=== PATIENT | male | born 1980 | race Caucasian/White ===

== ENCOUNTER 2021-01-15 11:09 | Inpatient (IN) | payer SELFPAY ==
[~2021-01-15] VITALS: Ht 170.2 cm; Wt 79.8 kg
--- NOTE | 2021-01-15 11:30 | NUR ---
TO ER BED 11, C/O RIGHT LEG SWELLING AND PAIN P/S 12/13 X2 DAYS, "GOT BITTEN BY SPIDER", AAOX3, BREATHING EVEN AND NON LABORED, CONNECTED TO MONITOR
[2021-01-15] MEDS ORDERED: VANCOMYCIN 1 GM VIAL ONE (11:57)
--- NOTE | 2021-01-15 11:59 | NUR ---
TIRE MAKER AT PT'S BEDSIDE
[2021-01-15] MEDS ORDERED: VANCOMYCIN 1 GM in IV D5W 250 ML IV ONE (12:00)
[2021-01-15 12:24] LABS: BASOPHILS % (AUTO) 0.2 % (0.0-2.0); EOSINOPHILS % (AUTO) 0.5 % (0.0-6.0); HEMATOCRIT 35 % (39-51); HEMOGLOBIN 11.8 g/dL (13.5-17.5); LYMPHOCYTES # (AUTO) 2.1 K/uL (0.8-4.8); LYMPHOCYTES % (AUTO) 17.8 % (20.0-44.0); MEAN CORPUSCULAR HGB CONC 34 g/dl (31.0-36.0); MEAN CORPUSCULAR VOLUME 85 fL (80-96); MONOCYTES # (AUTO) 1.1 K/uL (0.1-1.30); NEUTROPHILS # (AUTO) 8.5 K/uL (1.8-8.9); NEUTROPHILS % (AUTO) 72.5 % (43.0-81.0); PLATELET COUNT (AUTO) 440 K/uL (150-450); RED BLOOD CELL COUNT(AUTO) 4.15 MIL/uL (4.5-6.0); WHITE BLOOD COUNT (AUTO) 11.7 K/uL (4.3-11.0)
--- NOTE | 2021-01-15 12:24 | NUR ---
INITIATED RAC #20G S/L; PATENT AND INTACT. BLOOD COLLECTED AND GIVEN TO LAB IVF VANCO @250ML/HR. ELEVATED R LEG FOR COMFORT. RLE NOTED WITH REDNESS AND WARM TO TOUCH. BLISTER TO 2ND DIGIT ON R FOOT.
[2021-01-15 12:39] LABS: CALCIUM, SERUM 8.7 mg/dL (8.5-10.1); CREATININE 0.7 mg/dL (0.6-1.3); POTASSIUM 3.7 mmol/L (3.5-5.1)
--- NOTE | 2021-01-15 12:39 | NUR ---
COVID SWAB DONE AND SENT TO LAB
[2021-01-15 12:45] LABS: ALBUMIN 2.8 g/dL (3.4-5.0); BILIRUBIN,DIRECT 0.1 mg/dL (0.0-0.2); BILIRUBIN,TOTAL 0.3 mg/dL (0.2-1.0); TOTAL PROTEIN, SERUM 8.3 g/dL (6.4-8.2)
--- NOTE | 2021-01-15 12:53 | NUR ---
PER EMPERATRIZ LEIGH, PT ACCEPTED FOR ADMISSION BY KHANG LEIGH
--- NOTE | 2021-01-15 14:04 | NUR ---
ROOM [facility]
--- NOTE | 2021-01-15 14:48 | NUR ---
REPORT GIVEN TO KIMBERLY GONZALEZ. TRANSPORTED IN STABLE CONDITION.
[2021-01-15 14:50] VITALS: BP 142/78
--- NOTE | 2021-01-15 14:50 | NUR ---
MS RN NOTES RECEIVED PT FROM ER VIA LIZ, DILMA CELLULITIS BY DR. ARIS QUIÑONEZ, AO X 4, ON ROOM AIR O2 SAT AT 100%, NO SOB, RESPIRATION UNLABORED, STATED 8/10 PAIN ON RIGHT LOWER LEG. WITH RAC G 20 AND LEFT AC G 20 IV ACCESS, BOTH FLUSHES WELL, BOTH SITES CLEAR. PHOTOS OF SKIN ISSUES TAKEN AND INCORPORATED IN THE CHART. REFUSE FURTHER SKIN EVALUATION. REGULAR DIET. UNIT ORIENTATION AND USE OF CALL LIGHT DONE AND PLACED WITHIN REACH, BED LOW LOCKED, SR UP X2, INSTRUCTED TO CALL FOR ASSISTANCE. WILL CONT TO MONITOR.
[2021-01-15] MEDS ORDERED: ONDANSETRON HCL/PF 4 MG/2 ML VIAL IVP PRN (16:00)
[2021-01-15] MEDS ORDERED: MAGNESIUM HYDROXIDE 30 ML UDC PO PRN (16:00)
[2021-01-15] MEDS ORDERED: Z GUARD REMEDY 2 OZ OINT TP PRN (16:00)
[2021-01-15] MEDS ORDERED: MAG HYDROX/AL HYDROX/SIMETH 30 ML UDC PO PRN (16:00)
[2021-01-15] MEDS ORDERED: ACETAMINOPHEN 325 MG TABLET PO PRN (16:00)
[2021-01-15] MEDS: CEFTRIAXONE 1 G in IV D5W 50 ML IV SCH (17:19)
[2021-01-15] MEDS ORDERED: IV NS 0.9% 250 ML IV PRN (17:30)
--- NOTE | 2021-01-15 18:30 | NUR ---
RN NOTES PATIENT RESTING COMFORTABLY. ALL NEEDS FOR NOW. WILL ENDORSE TO NEXT SHIFT FOR GINNA. STABLE,.
[2021-01-15 20:00] VITALS: BP 148/65
[2021-01-15] MEDS: VANCOMYCIN 1.25 GM in IV D5W 250 ML IV SCH (21:35)
[2021-01-16 04:00] VITALS: BP 125/70
[2021-01-16] MEDS: VANCOMYCIN 1.25 GM in IV D5W 250 ML IV SCH ×3 (05:06→21:33)
--- NOTE | 2021-01-16 05:25 | NUR ---
RN notes In bed watching TV with confusion. No distress noted. Breathing even and unlabored. On room air tolerating well.. No complaint of pain or discomfort. Vital signs wnl. No significant change of condition. Kept clean and dry. Will endorse to next shift for community of care.
[2021-01-16 06:34] LABS: BASOPHILS # (AUTO) 0.1 K/uL (0.0-0.2); BASOPHILS % (AUTO) 0.5 % (0.0-2.0); HEMATOCRIT 38 % (39-51); HEMOGLOBIN 12.8 g/dL (13.5-17.5); LYMPHOCYTES # (AUTO) 1.5 K/uL (0.8-4.8); LYMPHOCYTES % (AUTO) 10.6 % (20.0-44.0); MEAN CORPUSCULAR HGB CONC 34 g/dl (31.0-36.0); MEAN CORPUSCULAR VOLUME 86 fL (80-96); MONOCYTES # (AUTO) 0.9 K/uL (0.1-1.30); MONOCYTES % (AUTO) 6.9 % (2.0-12.0); NEUTROPHILS # (AUTO) 11.3 K/uL (1.8-8.9); PLATELET COUNT (AUTO) 523 K/uL (150-450); RED BLOOD CELL COUNT(AUTO) 4.38 MIL/uL (4.5-6.0); WHITE BLOOD COUNT (AUTO) 13.7 K/uL (4.3-11.0)
[2021-01-16 07:03] LABS: CALCIUM, SERUM 8.9 mg/dL (8.5-10.1); CREATININE 0.9 mg/dL (0.6-1.3); MAGNESIUM 2.1 mg/dL (1.8-2.4); PHOSPHORUS 2.7 mg/dL (2.5-4.9); POTASSIUM 3.6 mmol/L (3.5-5.1)
--- NOTE | 2021-01-16 07:30 | NUR ---
RN NOTE PT IS AWAKE IN BED, A/OX4 AND ABLE TO VERBALIZE NEEDS, PT IS ON RA AND O2 SAT 100%, NO SIGNS OF LABORED BREATHING OR DISTRESS AT THIS TIME, INCONTINENT, IV ACCESS: R AC 20G, L AC 20G, PATENT AND FLUSHING WELL, ON REGULAR DIET, ISOLATION PRECAUTION OBSERVED, ALL HOSPITAL SAFETY MEASURES OBSERVED, BED IS LOCKED IN LOWEST POSITION X2 BED RAILS UP, CALL LIGHT WITHIN REACH, WILL CONTINUE TO MONITOR THIS SHIFT.
[2021-01-16 08:00] VITALS: BP 127/67
--- NOTE | 2021-01-16 09:39 | NUR ---
RN NOTE NOTIFIED DR. QUIÑONEZ REGARDING PATIENT ELEVATED BP AROUND 0900, NO RESPONSE AT THIS TIME. WILL FOLLOW UP WITH
[2021-01-16] MEDS ORDERED: HYDROCODONE/APAP 5/325MG TABLET PO PRN (12:00)
--- NOTE | 2021-01-16 12:03 | NUR ---
RN NOTE MD ORDERED NORCO 5/325 Q 6HR PRN, AND NIFEDIPINE 30MG DAILY.
[2021-01-16] MEDS: NIFEdipine (10MG) 10 MG CAPSULE PO SCH (12:10)
--- NOTE | 2021-01-16 13:11 | NUR ---
RN NOTE REASSESSED PT AFTER GIVING BP AND PAIN MEDICATION. BP IS 112/72 AND PAIN REMAINS AT 5. WILL UTILIZE NON PHARM INTERVENTIONS.
[2021-01-16] MEDS: CEFTRIAXONE 1 G in IV D5W 50 ML IV SCH ×2 (16:02→16:37)
--- NOTE | 2021-01-16 18:56 | NUR ---
RN CLOSING NOTE PT IS AWAKE IN BED, A/OX4 AND ABLE TO VERBALIZE NEEDS, PT IS ON RA AND O2 SAT 100%, NO SIGNS OF LABORED BREATHING OR DISTRESS AT THIS TIME, INCONTINENT, IV ACCESS: R AC 20G, PATENT AND FLUSHING WELL, ON REGULAR DIET, ISOLATION PRECAUTION OBSERVED, ZOFRAN IV GIVEN AT 1835 FOR N/V, WOUND TREATMENT DONE ORDERED, CONTINUE VANCO AND ABX TREATMENT AND DVT PPX NO BLEEDING NOTED, ADDED PROCARDIA FOR ELEVATED BP, ALL HOSPITAL SAFETY MEASURES OBSERVED, BED IS LOCKED IN LOWEST POSITION X2 BED RAILS UP, CALL LIGHT WITHIN REACH, WILL ENDORSE TO [facility] ASSOC NURSE FOR GINNA.
--- NOTE | 2021-01-16 19:10 | NUR ---
RN NOTES RECEIVED REPORT FROM MORNING NURSE. PATIENT IN BED A/O X4. NO DISTRESS NO SOB NOTED. WITH IV ACCESS AT L AC G 20 PATENT FLUSHES WELL. WITH BOTH LEGS CELLULITIS ON ATB IV TREATMENT NO ASE NOTED AT THIS TIME.VITAL SIGNS TAKEN AND RECORDED. ALL SAFETY MEASURES IN PLACE HOB ELEVATED, CALL LIGHT WITHIN REACH. WILL CONTINUE TO MONITOR THE PATIENT.
[2021-01-16 20:00] VITALS: BP 140/94
[2021-01-17] MEDS: VANCOMYCIN 1.25 GM in IV D5W 250 ML IV SCH (04:48)
--- NOTE | 2021-01-17 06:35 | NUR ---
RN NOTES PATIENT REMAINS STABLE THE WHOLE SHIFT, NO SIGNIFICANT CHANGES IN HEALTH CONDITION THIS SHIFT. PATIENT A/O X 4 ABLE TO MAKE NEEDS KNOWN. ALL DUE MEDS GIVEN ORDERED, WITH BILATERAL LOWER LEG CELLULITIS ON IV ANTIBIOTIC NO ASE NOTED AT THIS TIME. PATIENT REMAINS AFEBRILE THE WHOLE [place] SAFETY MEASURES IN PLACE AT ALL TIMES, HOB ELEVATED, BED ON LOWEST POSITION AND LOCKED. CALL LIGHT WITHIN REACH. ALL NEEDS ATTENDED. ENDORSED
--- NOTE | 2021-01-17 07:52 | NUR ---
RN MORNING NOTE PT IS AWAKE AND LYING IN BED, A/OX4 AND ABLE TO VERBALIZE NEEDS, PT IS ON RA AND O2, NO SIGNS OF LABORED BREATHING OR DISTRESS AT THIS TIME, INCONTINENT, IV ACCESS: R AC 20G, PATENT AND FLUSHING WELL, ON REGULAR DIET, ISOLATION PRECAUTION OBSERVED, ALL HOSPITAL SAFETY MEASURES OBSERVED, BED IS LOCKED IN LOWEST POSITION X2 BED RAILS UP, CALL LIGHT WITHIN REACH, WILL CONTINUE TO MONITOR THIS SHIFT.
[2021-01-17 09:11] VITALS: BP 154/103
[2021-01-17] MEDS: NIFEdipine (10MG) 10 MG CAPSULE PO SCH (09:11)
[2021-01-17 09:53] LABS: CALCIUM, SERUM 9.3 mg/dL (8.5-10.1); CREATININE 0.9 mg/dL (0.6-1.3); POTASSIUM 3.7 mmol/L (3.5-5.1)
--- NOTE | 2021-01-17 09:55 | NUR ---
RN NOTES PT VERBALIZED WANTING TO LEAVE AMA AFTER DISCUSSION WITH MD. PT DISCHARGED AMA.
== END 2021-01-17 10:00 | disposition left against medical advice (07) | DRG 871 ==
LOC: ER 11:12 → MEDSG1 14:18
PROVIDERS: ADMIT Internal Medicine; ATTEND Internal Medicine
DX: A41.9 Sepsis, unspecified organism (principal); E43 Unspecified severe protein-calorie malnutrition; L03.115 Cellulitis of right lower limb; E88.09 Other disorders of plasma-protein metabolism, not elsewhere classified; F32.A Depression, unspecified; F41.9 Anxiety disorder, unspecified; Z59.00 Homelessness unspecified; Z68.27 Body mass index [BMI] 27.0-27.9, adult; Z20.822 Contact with and (suspected) exposure to COVID-19; S81.801A Unspecified open wound, right lower leg, initial encounter; X58.XXXA Exposure to other specified factors, initial encounter; Y93.9 Activity, unspecified; Y92.89 Other specified places as the place of occurrence of the external cause
CPT/HCPCS: 36415; 73590-TC; 80048-TC; 80076-TC; 80202-TC; 83605-TC; 83735-TC; 84100-TC; 85025-TC; 87040-TC; 87081-TC; 93971-TC; A6253; C9803; G0378; J0696; J2405; J3370; J7050; J7060